=== PATIENT | female | born 1970 | race Two or more races ===

== ENCOUNTER 2025-01-18 05:50 | Day surgery (SDC) | payer MEDICAID, SELFPAY ==
--- NOTE | 2025-01-14 18:01 | ESHP_ITS ---
RE: CAROL RAMOS : 1970 DATE OF ADMISSION: 01/18/2025 HISTORY OF PRESENT ILLNESS: This is a 54-year-old 4, para 3-0-1-3 with abnormal uterine bleeding who presents for endometrial ablation. ALLERGIES: NO KNOWN DRUG ALLERGIES. MEDICATIONS: None. PAST MEDICAL HISTORY: Hypertension, high cholesterol, prediabetes. PAST SURGICAL HISTORY: delivery x3, colonoscopy, bilateral tubal ligation. SOCIAL HISTORY: She denies any alcohol, drug use, or smoking. She is Irish-speaking. FAMILY HISTORY: Colon cancer, diabetes, kidney disease. PHYSICAL EXAMINATION: VITAL SIGNS: Blood pressure is 141/76, heart rate 76, respirations 18, temperature 98.2, weight 172 pounds. HEENT: Oropharynx and sclerae are clear. LUNGS: Clear to auscultation bilaterally. HEART: Regular rate and rhythm. ABDOMEN: Old Pfannenstiel scar noted. EXTREMITIES: Nontender. SKIN: No gross rashes or lesion. NEUROLOGIC: No focal deficit. ASSESSMENT AND PLAN: Abnormal uterine bleeding. PLAN: Hysteroscopy, fractional dilatation and curettage, and NovaSure endometrial ablation. Informed consent was obtained. The patient was made aware of the risks, complications, alternatives, benefits of the proposed procedure, and she agrees. She is aware of the risk of injury to bowel or bladder, adjacent organs, pulmonary embolism, deep vein thrombosis, pelvic infection, reoperation to repair injury to internal organs, anesthesia complications, the possibility that a laparotomy needs to be performed to repair organs or control bleeding, the possibility that the procedure is not able to be completed due to severe adhesions or technical difficulties. DT: 16:41:26 TT: 17:25:00 Ref: [id number] - TID: [id number]
[2025-01-17 08:26] VITALS: BMI 31.8
--- NOTE | 2025-01-17 08:43 | EKG_ITS ---
[facility] Test Date: 2025-01-17 Pat Name: CAROL RAMOS Department: Room: - Gender: Female Residential Service Technician: SHAAN : 1970 Requested By: Robert Higgins Order Number: [id number] Reading MD: Robert Higgins Measurements Intervals [place] Rate: 62 P: 30 ID: [id number] QRS: 31 QRSD: 90 T: 35 QT: 411 QTc: 420 Interpretive Statements SINUS RHYTHM POSSIBLE LEFT ATRIAL ENLARGEMENT [-0.1mV P WAVE IN V1/V2] No previous ECG available for comparison /[id number]/[email or web address]/[id number].pdf
[2025-01-17 09:41] LABS: Basophils # (Auto) 0.1 Thou/mm3 (0.0-0.2); Basophils % (Auto) 1 % (0-2.5); Eosinophils # (Auto) 0.5 Thou/mm3 (0.0-0.5); Eosinophils % (Auto) 8 % (0-10); Hematocrit 34.8 % (36.0-46.0); Hemoglobin 11.5 g/dL (12.0-16.0); Immature Granulocytes % (Auto) 0 % (0-0); Immature Granulocytes Auto 0.01 Thou/mm3 (0.00-0.00); Lymphocytes # (Auto) 2.7 Thou/mm3 (1.0-4.8); Lymphocytes % (Auto) 44 % (10-50); Mean Corpuscular Hemoglobin 26.8 pg (25.0-35.0); Mean Corpuscular Volume 81 fL (80-100); Monocytes # (Auto) 0.5 Thou/mm3 (0.0-0.8); Monocytes % (Auto) 8 % (0-12); Neutrophils # (Auto) 2.4 Thou/mm3 (1.8-7.7); Neutrophils % (Auto) 39 % (37-80); Nucleated Red Blood Cell % 0 /100 WBC (0); Platelet Count 296 Thou/mm3 (140-440); RDW Standard Deviation 43.8 fL (36.4-46.3); Red Blood Count 4.29 Miln/mm3 (4.00-5.20); White Blood Count 6.2 Thou/mm3 (3.6-11.0)
[2025-01-17 10:11] LABS: Partial Thromboplastin Time 28.7 Seconds (22.0-36.0); Prothrombin Time 11.3 Seconds (9.0-12.2)
[2025-01-17 10:19] LABS: Alanine Aminotransferase 47 U/L (10-49); Albumin, Serum 4.5 gm/dL (3.5-5.0); Albumin/Globulin Ratio 1.7 (1.2-2.2); Alkaline Phosphatase 80 U/L (46-116); Anion Gap 8 (7-16); Aspartate Amino Transferase 37 U/L (0-34); BUN/Creatinine Ratio 13 Ratio (12-20); Beta HCG,Quantitative 2 mIU/mL (<5.0); Bilirubin,Total 0.4 mg/dL (0.3-1.2); Blood Urea Nitrogen 8 mg/dL (9-23); Calcium 9.4 mg/dL (8.3-10.6); Calcium (Corrected) 9.4 mg/dL (8.5-10.1); Carbon Dioxide 26.4 mMol/L (20.0-31.0); Chloride 103 mMol/L (98-107); Creatinine (Component) 0.6 mg/dL (0.6-1.3); Estimated Creatinine Clearance 106.7 mL/min (>60); Globulin 2.6 gm/dL (2.3-3.5); Glucose 108 mg/dL (74-106); Osmolality,Calculated 273 (275-295); Potassium 3.9 mMol/L (3.4-5.1); Sodium 137 mMol/L (136-145); Total Protein 7.1 gm/dL (5.7-8.2); eGFR > 60 See Note
[2025-01-18] VITALS (8 sets, daily range): BP systolic 134–160; BP diastolic 77–90; PULSE 68–100; RESP 13–20; TEMP 36.3–36.8; O2SAT 98–100; BMI 31.6
[2025-01-18] MEDS: RINGERS LACTATED 1000 ML 1,000 ML 30 ML IV (06:46)
--- NOTE | 2025-01-18 08:27 | ESOP_ITS ---
Operative Note - [employer] Procedure Date of procedure: 01/18/25 Procedure Performed: Hysteroscopy, MyoSure removal of endometrial polyps, fractional dilatation and curettage Indication: Abnormal uterine bleeding Pre-Op diagnosis: Abnormal uterine bleeding Post-Op diagnosis: Abnormal uterine bleeding Endometrial polyps Anesthesia type: General Procedure description: After proper informed consent was obtained and the patient made aware the risk complication alternative benefits of the proposed procedure she was taken to the operating room where she underwent induction of general anesthesia. She was placed in dorsolithotomy position and prepped and draped in usual sterile fashion. A timeout was performed. A bivalve speculum was placed in the vagina single-tooth tenaculum was used to grasp the anterior per the cervix the endocervical canal was measured at 3.5 cm. The uterine cavity was measured at 9.5 cm anteverted. The cervical canal was dilated to accommodate the 5.5 mm Omni hysteroscope. The hysteroscope was then utilized to visualize the endocervix and uterine cavity and 2 polyps were noted in the posterior fundal aspect of the uterus. They were approximately 3 x 3 mm in size. Using the MyoSure reach the polyps were removed. Additional endometrial tissue was sampled. The endocervix was then curetted with a Kevorkian curette. The uterine cavity was then curetted with a 5 mm curette. The NovaSure catheter was plugged into the controller. The controller went through the purge cycle. 6.0 was entered on the cavity length and on the NovaSure catheter.. The array was appropriately seated in the uterine cavity. The width meter read 3.2 cm. The power setting was 106 W. The NovaSure endometrial ablation length was 1 minute and 19 seconds. The controller shut off. The array was removed from the uterine cavity. The array was deployed and found to be complete and intact. There was no bleeding at the end of the procedure. All instruments were removed from the vagina. She was reversed from general anesthesia in the supine position and transferred to the recovery room in stable condition. I discussed with the patient's the nature of her condition. The intraoperative findings. The expectation for recovery. All questions answered. Estimated blood loss (ml): 5 Findings: Uterus sounded to 9.5 cm anteverted. Cervical length was 3.5 cm. Uterine cavity contained 2 endometrial polyps measuring 3 x 3 mm each. The uterine cavity was otherwise unremarkable. The endocervical canal was within normal limits. The power setting was 106 W. The uterine cavity length was 6.0 cm. Cervical length was 3.2 cm. Duration of ablation was 1 minute and 19 seconds. Surgical staff Dallin Montoya CRNA Operation Date: 01/18/25 07:35 <No data on this case meets the specified criteria> Diagnosis Discharge Diagnosis (1) Status post endometrial ablation: Status: Acute (2) Abnormal uterine bleeding: Status: Acute Problem List Completed Was Problem List Reviewed/Reconciled?: Yes
--- NOTE | 2025-01-18 08:31 | SUR.PHASEI ---
pt received from OR in recovery bay 1. pt asleep but responds to voice, breathing unlabored on on 8l oxymask, nasal airway in place. v/s stable. pt dressing peripad cdi. report received from Melodie MULLINS and Dallin SALDANA.
--- NOTE | 2025-01-18 10:00 | SUR.PHASEII ---
pt able to tolerate oral fluids without difficulty swallowing or nausea/vomiting.
--- NOTE | 2025-01-18 10:05 | SUR.PHASEII ---
pt awake and alert, breathing unlabored on room air. v/s stable. pt dressing peripad cdi. pt able to ambulate to wheelchair with steady gait. d/c instructions given with Kiet in room using anglesmith helper Sharon STUBBS, all questions answered. pt d/c via wheelchair with all belongings.
== END 2025-01-18 10:05 | disposition home or self-care (01) ==
PROVIDERS: PCP Nurse Practitioner Family; Referring Provider Specialist; Visit Provider Specialist
PROC: 0U5B8ZZ Destruction of Endometrium, Via Natural or Artificial Opening Endoscopic (ICD-10-PCS; CPT 58563; principal; 2025-01-18 07:30)
DX: N84.0 Polyp of corpus uteri (principal); Z83.3 Family history of diabetes mellitus; Z80.0 Family history of malignant neoplasm of digestive organs; Z98.51 Tubal ligation status; I10 Essential (primary) hypertension; E78.00 Pure hypercholesterolemia, unspecified; Z01.810 Encounter for preprocedural cardiovascular examination
CPT/HCPCS: 58563; 36415; 80053; 84702; 85025; 85610; 85730; 86850; 86900; 86901; 93005; A4217; A4649; J0131; J0690; J1885; J2250; J2704; J3010; J3490; J7120; J1596